=== PATIENT | female | born 2000 | race Caucasian/White ===

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

== ENCOUNTER 2022-03-31 11:30 | Emergency (ER) | payer OTHER ==
[2022-03-31 12:48] LABS: BASOPHILS # (AUTO) 0.1 10^3/uL (0.0-0.1); BASOPHILS % (AUTO) 0.5 %; EOSINOPHILS # (AUTO) 0.2 10^3/uL (0.0-0.7); EOSINOPHILS % (AUTO) 1.9 %; HCT - HEMATOCRIT 41.9 % (37.0-47.0); HGB - HEMOGLOBIN 13.3 g/dL (12.0-16.0); LYMPHOCYTES # (AUTO) 2.6 10^3/uL (1.5-3.5); LYMPHOCYTES % (AUTO) 25.3 %; MEAN CORPUSCULAR HEMOGLOBIN 26.5 pg (27.0-31.0); MEAN CORPUSCULAR HGB CONC 31.7 g/dL (32.0-36.0); MEAN CORPUSCULAR VOLUME 83.6 fL (81.0-99.0); MEAN PLATELET VOLUME 10.9 fL (7.9-10.8); MONOCYTES # (AUTO) 0.6 10^3/uL (0.0-1.0); MONOCYTES % (AUTO) 5.3 %; NEUTROPHILS % (AUTO) 66.8 %; PLT - PLATELET COUNT 434 10^3/uL (130-450); RED BLOOD COUNT 5.01 10^6/uL (4.20-5.40); RED CELL DISTRIBUTION WIDTH 14.2 % (12.0-15.0); WHITE BLOOD COUNT 10.4 x10^3/uL (4.8-10.8)
--- NOTE | 2022-03-31 12:49 | XRAY Report ---
PROCEDURE: Chest 1 View X-Ray INDICATIONS: Chest Pain TECHNIQUE: One view of the chest was acquired. COMPARISON: None FINDINGS: Surgical changes and devices: None. Lungs and pleura: No pleural effusions or pneumothorax. Lungs are clear. Mediastinum: Mediastinal contours appear normal. Heart size is normal. Bones and chest wall: No suspicious bony lesions. Overlying soft tissues appear unremarkable. IMPRESSION: No acute pulmonary process. Reviewed by: Sharifa Mujica MD on 03/31/2022 12:48 PM PDT Approved by: Sharifa Mujica MD on 03/31/2022 12:48 PM PDT Station ID: [id number]
[2022-03-31 13:05] LABS: ALBUMIN 4.4 g/dL (3.2-5.5); ALBUMIN/GLOBULIN RATIO 1.2 (1.0-2.2); BILIRUBIN,TOTAL 0.4 mg/dL (0.2-1.0); CALCIUM 9.9 mg/dL (8.5-10.3); CREATININE 0.6 mg/dL (0.4-1.0); POTASSIUM 4.3 mmol/L (3.5-5.0); TOTAL PROTEIN 8.2 g/dL (6.7-8.2)
--- NOTE | 2022-03-31 13:11 | ED Physician Documentation ---
History of Present Illness - Stated complaint Stated Complaint: BP CONCERNS - Chief complaint Chief Complaint: Cardiac - History obtained from History obtained from: Patient, Family - History of Present Illness Timing: Today Pain level max: 0 Pain level now: 0 - Additonal information Additional information: 22-year-old female presents to the emergency department stating that she checked her blood pressure today and it was 160/140. She states she had a mild frontal headache. She states sometimes it feels like her left arm is weaker than her right arm. She states that sometimes she also feels tired, but thinks that is because she does not sleep well at night. No numbness or tingling. Currently does not have any weakness. No chest pain. No shortness of breath. She states she has not checked her blood pressure for over a year prior to this. She has an appointment with her doctor next week. Review of Systems Constitutional: denies: Fever, Chills Nose: denies: Rhinorrhea / runny nose, Congestion Throat: denies: Sore throat Cardiac: denies: Palpitations Respiratory: denies: Cough GI: denies: Nausea, Vomiting, Diarrhea Skin: denies: Rash Musculoskeletal: denies: Neck pain, Back pain Neurologic: denies: Headache PD PAST MEDICAL HISTORY - Past Medical History Cardiovascular: None Respiratory: None Neuro: None Endocrine/Autoimmune: None - Past Surgical History Past Surgical History: No - Present Medications Home Medications: Ambulatory Orders Medication Instructions Recorded Confirmed Albuterol Sulf [Ventolin Hfa 3 - 4 puffs INH Q4HR PRN #1 inhaler 06/13/21 Inhaler] Cetirizine [ZyrTEC] 10 mg PO BID #14 tablet 06/13/21 dexAMETHasone [Decadron] 4 mg PO DAILY #5 tablet 06/13/21 - Allergies Allergies/Adverse Reactions: Allergies Allergy/AdvReac Type Severity Reaction Status Date / Time No Known Drug Allergies Allergy Verified 03/31/22 11:42 - Social History Does the pt smoke?: No Smoking Status: Never smoker Does the pt drink ETOH?: No PD ED PE NORMAL - Vitals Vital signs reviewed: Yes - General General: Alert and oriented X 3, No acute distress - HEENT HEENT: Moist mucous membranes - Neck Neck: Supple, no meningeal sign - Cardiac Cardiac: RRR, Strong equal pulses - Respiratory Respiratory: No respiratory distress, Clear bilaterally - Abdomen Abdomen: Soft, Non tender, Non distended - Derm Derm: Warm and dry - Extremities Extremities: No edema, No calf tenderness / cord - Neuro Neuro: Alert and oriented X 3, welder experimental 2-12 intact, No motor deficit, No sensory deficit, Normal speech - Psych Psych: Normal mood, Normal affect Results - Vitals Vitals: Vital Signs - 24 hr 03/31/22 03/31/22 11:37 13:15 Temperature 36.3 C L Heart Rate 83 84 Respiratory 16 18 Rate Blood Pressure 145/83 H 124/79 O2 Saturation 100 94 Oxygen O2 Source Room air - EKG (time done) 1145 Rate: Rate (enter#) (88) Rhythm: NSR [place]: Normal Intervals: Normal [place] QRS: Normal Ischemia: Normal ST segments - Labs Labs: Laboratory Tests 03/31/22 03/31/22 03/31/22 12:41 12:41 12:41 WBC 10.4 RBC 5.01 Hgb 13.3 Hct 41.9 MCV 83.6 MCH 26.5 L MCHC 31.7 L RDW 14.2 Plt Count 434 MPV 10.9 H Neut # (Auto) 7.0 H Lymph # (Auto) 2.6 [place] # (Auto) 0.6 Eos # (Auto) 0.2 Baso # (Auto) 0.1 Absolute Nucleated RBC 0.00 Nucleated RBC % 0.0 Sodium 139 Potassium 4.3 Chloride 104 Carbon Dioxide 23 Anion Gap 12.0 BUN 18 Creatinine 0.6 Estimated GFR (MDRD) 127 Glucose 93 Calcium 9.9 Total Bilirubin 0.4 AST 18 ALT 20 Alkaline Phosphatase 85 Troponin I High Sens < 2.3 L Total Protein 8.2 Albumin 4.4 Globulin 3.8 Albumin/Globulin Ratio 1.2 Lipase 28 PD MEDICAL DECISION MAKING - ED course Complexity details: reviewed results, re-evaluated patient, considered differential, d/w patient ED course: 22-year-old female presents the emergency department stating she had an elevated blood pressure reading earlier today. Recommend that she keep a log of her blood pressures at home and keep track of them for follow-up with her doctor to determine if she has hypertension or not. No significant lab abnormalities. Normal EKG. Patient is otherwise asymptomatic currently. NIH stroke scale of 0. Patient counseled regarding signs and symptoms for which I believe and urgent re-evaluation would be necessary. Patient with good understanding of and agreement to plan and is comfortable going home at this time This document was made in part using voice recognition software. While efforts are made to proofread this document, sound alike and grammatical errors may occur. Departure - Departure Disposition: 01 Home, Self Care Clinical Impression: Elevated blood pressure reading Condition: Good Instructions: High Blood Pressure Follow-Up: your,doctor in 1 week [Other] Comments: You had an elevated blood pressure reading today. You need to follow-up with your primary care provider for further care. As we discussed, you should keep a log of your blood pressures at home, do not worry too much about the number at this time. Just keep the log for your doctor. Return if you worsen. Discharge Date/Time: 03/31/22 13:30
[2022-03-31 13:15] VITALS: BP 124/79
== END 2022-03-31 13:30 | disposition home or self-care (01) ==
LOC: ED 11:30
DX: R03.0 Elevated blood-pressure reading, without diagnosis of hypertension (principal)
CPT/HCPCS: 36415; 80053; 83690; 84484; 85025; 93005; 99282; 99284